=== PATIENT | male | born 1990 | race Caucasian/White ===

== ENCOUNTER 2020-06-30 17:30 | Emergency (ER) | payer OTHER, SELFPAY ==
[2020-06-30 17:53] VITALS: BP 132/72; PULSE 100; RESP 16; TEMP 36.8; O2SAT 99; BMI 30.1
[2020-06-30] MEDS: PROPARACAINE 0.5% OPHTH SOL 1 DROPS EYE-RIGHT (19:00)
[2020-06-30] MEDS: FLUORESCEIN 1 MG STRIP EYE-RIGHT (19:14)
--- NOTE | 2020-06-30 19:59 | ED.EYEPROB ---
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 No visual changes. No erythema. He did rinse the eye well and today still has a sensation of foreign body present Related Data Previous Rx's Medication Instructions Recorded gentamicin 2 drop EYE-RIGHT Q6H 3 Days #5 ml 06/30/20 Allergies Allergy/AdvReac Type Severity Reaction Status Date / Time No Known Drug Allergies Allergy Verified 06/30/20 18:56 Review of Systems Review of Systems Narrative: Pertinent positive and negative findings as per HPI Remainder of review of systems is otherwise unremarkable for Constitutional: Fevers, chills, weakness ENT: No sore throat, neck pain, ear pain CV: Chest pain, palpitations, Respiratory: Cough, wheeze, dyspnea GI: Nausea, vomiting, diarrhea, change in bowel habits, black or bloody stools : Dysuria, hematuria, flank pain Patient History Social History Smoking Status: Never smoker Smoking Status: Never smoker alcohol intake frequency: 0-2 drinks per day Substance Use Type: does not use Exam Initial Vital Signs Initial Vital Signs: Vital Signs Temperature 98.3 F 06/30/20 17:53 Pulse Rate 100 H 06/30/20 17:53 Respiratory Rate 16 06/30/20 17:53 Blood Pressure 132/72 06/30/20 17:53 Pulse Oximetry 99 06/30/20 17:53 Const General: cooperative, healthy appearing and comfortable HENMT Head: normal to inspection Eyes Visual Blanc: normal visual blanc by confrontation Alignment and Position: alignment normal Conjunctivae: conjunctival abnormality (Increasing erythema medial aspect of the conjunctiva punctate debris ) right Cornea: corneas abnormal on the right fluorescein used and foreign body metallic and with rust ring present Pupils: PERRL Resp Effort & Inspection: normal respiratory effort and able to speak in complete sentences Course Orders Ordered: Discontinued Medications Fluorescein Sodium (Ful-Madelyn) 1 mg EYE-RIGHT NOW ONE Stop: 06/30/20 18:04 Last Admin: 06/30/20 19:14 Dose: 1 mg Documented by: FAM Proparacaine HCl (Parcaine 0.5% Ophth Monserrat) 1 drops EYE-RIGHT NOW ONE Stop: 06/30/20 18:04 Last Admin: 06/30/20 19:00 Dose: 1 drop Documented by: FAM Vital Signs Vital signs: Vital Signs - 8 hr 06/30/20 17:53 06/30/20 20:04 Temperature 98.3 F 99 F Pulse Rate 100 H 93 H Respiratory Rate 16 Blood Pressure 132/72 134/83 Pulse Oximetry 99 99 MDM - Eye Problem Medical Records Attestation: I reviewed the patient's medical records. MDM Narrative Medical decision making narrative: Slit-lamp exam is done. There is a 1 mm metal foreign body in the upper outer quadrant of the cornea that is easily removed with minor rest ring still remaining. Similar foreign body in the medial aspect of the sclera easily removed simply with a Q-tip. Tolerated procedure in exam well. Will place him on gentamicin eyedrops. He is safe for home discharge Discharge Plan Departure Patient Disposition: Home Clinical Impression: Eye foreign body Qualifiers: Encounter type: initial encounter Laterality: right Qualified Code(s): T15.91XA - Foreign body on external eye, part unspecified, right eye, initial encounter Discharge Date/Time: 06/30/20 20:06 Instructions: DI for Corneal Foreign Body-Eye Activity Restrictions/Additional Instructions: Thank you for coming in. You actually had 2 small bits of debris in her eye. There was 1 in the white portion closer to your nose that was easy to remove once the surface of your eyeball was numb. There was very small bit of metal just over the cornea of that was removed within eye bree without much difficulty. I am going to suggest that you use antibiotic eye drops for the next 3 days to prevent any infection. If you notice that your having any change in vision, and increased redness in her eye, you can actually see that there is physical changes to the surface of your eye around the area where the caleb was, you need to come back to the emergency department for further evaluation I hope you heal quickly Prescriptions: New gentamicin 0.3 % drops 2 drop EYE-RIGHT Q6H 3 Days Qty: 5 RF: 0 Referrals: Elia Oliveira [Primary Care Provider] -
[2020-06-30 20:04] VITALS: BP 134/83; PULSE 93; TEMP 37.2; O2SAT 99
== END 2020-06-30 20:06 | disposition home or self-care (01) ==
PROVIDERS: Emergency Provider Emergency Medicine; PCP Family Medicine
DX: T15.91XA Foreign body on external eye, part unspecified, right eye, initial encounter (principal); W45.8XXA Other foreign body or object entering through skin, initial encounter; W29.8XXA Contact with other powered hand tools and household machinery, initial encounter; Y99.0 Civilian activity done for income or pay
CPT/HCPCS: 99282

== ENCOUNTER 2024-04-01 23:03 | Emergency (ER) | payer OTHER, SELFPAY ==
[2024-04-01 23:15] VITALS: BP 138/64; PULSE 93; RESP 16; TEMP 36.8; O2SAT 99; BMI 31.0
[2024-04-01] MEDS: FLUORESCEIN 1 MG STRIP (23:30)
--- NOTE | 2024-04-01 23:37 | ED.EYEPROB ---
HPI - Eye Problem General Chief complaint: Eye Problems Stated complaint: something in rt eye Time Seen by Provider: 04/01/24 23:20 Source: patient Mode of arrival: Ambulatory History of Present Illness HPI Narrative: 33-year-old male presents for evaluation of possible foreign body in his right eye. Earlier this morning he was giving her dog a bath when he thinks he may have gotten something inside his eye such as a foreign body. He washed his eyes out with water and went to an eye wash station, but still feels like there is something in his eye. He woke up this afternoon with his eye crusted shut. Visual acuity unchanged. Is not wear glasses or contacts. Related Data Home Medications Medication Instructions Recorded Confirmed albuterol sulfate 90 mcg/actuation inhalation 04/01/24 aerosol inhaler lamotrigine 25 mg tablet 50 mg PO DAILY 04/01/24 04/01/24 lisdexamfetamine 40 mg capsule 40 mg PO DAILY 04/01/24 04/01/24 Allergies Allergy/AdvReac Type Severity Reaction Status Date / Time No Known Drug Allergies Allergy Verified 06/30/20 18:56 Patient History Social History Smoking Status: Current every day smoker Smoking Status: Current every day smoker tobacco type: cigarettes alcohol intake frequency: 0-2 drinks per day Substance Use Type: does not use Exam Initial Vital Signs Initial Vital Signs: Vital Signs Temperature 98.3 F 04/01/24 23:15 Pulse Rate 93 H 04/01/24 23:15 Respiratory Rate 16 04/01/24 23:15 Blood Pressure 138/64 04/01/24 23:15 Pulse Oximetry 99 04/01/24 23:15 Oxygen Delivery Method Room Air 04/01/24 23:15 Const: Awake, alert, no acute distress, nontoxic appearing Eyes: PERRLA, EOMI, fluorescein stain uptake in linear pattern underneath iris. Negative Tari sign Skin: Warm, Dry, intact, no rashes Neuro: AO x3, CN II-XII grossly intact, moves all extremities Course Orders Ordered: Discontinued Medications Erythromycin (Erythromycin Ophth 1 Gm Oint) 1 applic EYE-RIGHT NOW ONE Stop: 04/01/24 23:37 Last Admin: 04/01/24 23:59 Dose: 1 applic Documented By: AB Vital Signs Vital signs: Vital Signs - 8 hr 04/01/24 23:15 Temperature 98.3 F Pulse Rate 93 H Respiratory Rate 16 Blood Pressure 138/64 Pulse Oximetry 99 Oxygen Delivery Method Room Air MDM - Eye Problem MDM Narrative Medical decision making narrative: Foreign body sensation in right eye. He does have some conjunctival injection with irritation on exam, visual acuity unchanged. Eyelids were everted, absolutely no foreign bodies found. Fluorescein stain shows a linear sweep uptake pattern beneath the iris, again without foreign body found. Patient given erythromycin ointment and instructed to follow up with eye doctor if no noticeable improvement Discharge Plan Departure Patient Disposition: Home Clinical Impression: Corneal abrasion Instructions: DI for Corneal Abrasion Activity Restrictions/Additional Instructions: Use the eye ointment 3-4 times daily. Avoid rubbing your eye. Follow up with an eye doctor. Prescriptions: No Action albuterol sulfate 90 mcg/actuation HFA aerosol inhaler inhalation lisdexamfetamine 40 mg capsule 40 mg PO DAILY lamotrigine 25 mg tablet 50 mg PO DAILY Referrals: Elia Oliveira [Primary Care Provider] - Stand Alone Forms: Patient Portal/API
[2024-04-01] MEDS: ERYTHROMYCIN OPHTH 1 GM OINT 1 APPLIC EYE-RIGHT (23:59)
== END 2024-04-02 | disposition home or self-care (01) ==
PROVIDERS: Emergency Provider Emergency Medicine; PCP Family Medicine
DX: S05.01XA Injury of conjunctiva and corneal abrasion without foreign body, right eye, initial encounter (principal); X58.XXXA Exposure to other specified factors, initial encounter; Y93.89 Activity, other specified
CPT/HCPCS: 99282; 99283